=== PATIENT | female | born 1935 | race Caucasian/White ===

== ENCOUNTER → 2017-12-25 05:43 | Day surgery (SDC) | payer MEDICARE ==
[~2017-12-25 05:43] MED LIST: Buffered Lidocaine 0.9% SYRIN* 5 ML/SYR SYRINGE INTRADERM ONE; Bupivacaine 0.5% SDV PF* 30ML VIAL ONE; Dexamethasone TAB* 4 MG ONE; Dexamethasone TAB* 4 MG PO ONE; DiMENhydriNATE IV* 50 MG/ML VIAL IV PUSH PRN; Famotidine IV* 10 MG/ML 2 ML (20 mg) IV ONE; Famotidine IV* 10 MG/ML 2 ML (20 mg) ONE; KETAMINE HCL* 50 MG/ML 10 ML VIAL ONE; Lidocaine 2% PF * 5 ML VIAL ONE; Midazolam* 1 MG/ML 5 ML VIAL (5 MG) ONE; Morphine INJ* 2 MG/ML 1 ML SYRINGE (TWO MG - NEW SYRINGE VERSION) IV PRN; Morphine VIAL* 10 MG/ML 1 ML VIAL ONE; Naloxone* 0.4 MG/ML 1 ML VIAL IV PRN; Ondansetron ODT TAB* 4 MG ONE; Ondansetron TAB* 4 MG PO ONE; PROCHLORPERAZINE INJ 5 MG/ML 2 ML VIAL IV PRN; Phenylephrine INJ* 10 MG/ML 1 ML VIAL (10 MG) ONE; Propofol* 10 MG/ML 20 ML BTL IV PUSH ONE; Succinylcholine* 20 MG/ML 10 ML VIAL ONE; ceFAZolin 2 GM in NS PREMIX(*) 2 GM/100 ML BAG IVPB ONE; fentaNYL* 50 MCG/ML 2 ML VIAL (100 MCG VIAL) IV PRN; fentaNYL* 50 MCG/ML 2 ML VIAL (100 MCG VIAL) ONE; oxyCODONE/Acetamin 5/325 MG* TAB PO PRN
--- NOTE | 2017-12-26 05:14 | OP ---
DATE OF OPERATION: 12/25/17 - [facility] DATE OF : 35 SURGEON: Emerson Maxwell MD CRUDE OIL TREATER: ATA Gonzalez. A physician phlebotomy lab assistant was required for the length of the procedure for assistance with positioning, retraction, instrumentation, and closure. ANESTHESIOLOGIST: Denis Guzmán MD ANESTHESIA: General anesthesia with LMA, regional anesthesia with axillary nerve block. PRE-OP DIAGNOSIS: Right distal radius fracture, displaced, extraarticular. POST-OP DIAGNOSIS: Right distal radius fracture, displaced, intraarticular, 3 or more fragments. OPERATIVE PROCEDURE: Open reduction internal fixation right distal radius fracture, displaced, intraarticular, 3 or more fragments. ANTIBIOTICS: Ancef 2 g IV. IV FLUIDS: 1100 cc crystalloid. TOURNIQUET TIME: 86 minutes at 250 mmHg. [id number] TIME: 84 minutes. RADIATION EXPOSURE: Mini C-arm fluoroscopy, 83 seconds for an exposure of 25.53 mGy. COMPLICATIONS: None. SPECIMEN: None. IMPLANT: Synthes volar polyaxial distal locking plate, 3-hole, narrow. ESTIMATED BLOOD LOSS: Minimal. INDICATIONS FOR PROCEDURE: The patient is an 82-year-old woman, right hand dominant, who lives alone, who injured herself on 12/11/17 and saw me in the clinic on 12/16/17 where I diagnosed her with right distal radius fracture, displaced, extraarticular. The patient had dorsal tilt of somewhere between 16 to 20 degrees as a result of the fracture. I discussed nonoperative and operative treatment of the fracture and discussed the pros and cons of each. The patient opted for surgical management. I placed her on a cast and scheduled her for surgery. The patient was seen and cleared by her primary care physician. DESCRIPTION OF PROCEDURE: The patient signed written a consent in preoperative holding. Operative extremity was marked in preoperative holding. The patient' s cast was bivalved. Axillary nerve block was performed by Dr. Guzmán. The patient was taken back to the operating room and kept on the stretcher. Sedated and LMA placed. Hand table applied. Tourniquet applied to the right upper arm. Right upper extremity was prepped and draped. Surgical time-out performed. Esmarch applied and tourniquet elevated to 250 mmHg. A 7-cm incision about the volar wrist, longitudinal, overlying the FCR tendon was made. I changed knives and dissected with knife and then scissor dissection to the FCR sheath. I incised the sheath above the FCR. I then retracted the FCR ulnarly. I then incised the subsheath of the FCR. I then retracted the FPL tendon and muscle ulnarly. This exposed the pronator quadratus. I released this off the radial most edge of the distal radius. I released it with both 15-blade and then Bovie electrocautery. I exposed the fracture site. I debrided the fracture site somehow with curette , mini rongeur, and [place]. The fracture was displaced and slightly impacted. I performed reduction maneuvers with a combination of wrist flexion and longitudinal traction. I placed two 0.062 inch K-wires to hold the reduction. I found this reduction to not be perfect, so I did change it later. I sized the distal radius to fit a narrow plate. I placed the plate in place with three 0.045 inch K-wires. I liked the fit of the plate. I moved the plate slightly distal after having placed a 2.4 mm nonlocking screw in the oval hole proximally. After distalizing the plate slightly, I tightened it. I placed a second nonlocking 2.4 mm screw proximally. This controlled for rotation. I next removed the provisional K-wires that I placed earlier and re-reduced the fracture. I next placed a 0.045 K-wire through the plate distally. I took multiple mini C-arm images to confirm the excellent reduction. I next placed two locking 2.4 mm screws distally through the plate. I liked the length of my screws and the position of the plate and the reduction of my fracture. I removed the remaining pins that had been placed through the plate. I next proceeded to fill the plate distally with 2.4 mm locking screws. Proximally, in my proximal 3 holes, I placed two locking 2.4 mm screws. The oval holed screw, I exchanged a 2.4 mm nonlocker for a 2.7 mm nonlocking screw as is my custom. Final x-rays with mini C-arm showed excellent islam of volar tilt and radial inclination. Excellent fracture reduction. Good length of hardware and positioning of hardware. It should be stated that preoperatively this appeared to be in extraarticular fracture, transverse. However, intraoperatively, I discovered that there was clearly a longitudinal fracture-like component that made for a separate radial styloid fragment. During my reduction maneuvers, I certainly compressed the distal radius fragment and its two components, from medial to lateral to try to optimally reduce those fragments as well as those two fragments to the most proximal segment. Irrigation. I placed approximately four stitches, [id number], between the pronator quadratus and the FCR subsheath. Irrigation. Closure of the subcutaneous tissue layer with buried simple stitches using Vicryl 3-0 suture. Closure of the skin with running stitch using nylon 3-0 suture. Xeroform, 4x4s , sterile Webril, a volar and dorsal wrist splint was applied using plaster and wrapped with an Edmundo bandage. The tourniquet was then dropped. The patient was then placed in a simple sling. DISPOSITION: The patient was discharged home when medically stable. She was sent home with Percocet for pain control and Bactrim x3 days postoperatively for infection prophylaxis. The patient will follow up in clinic in approximately 10 days postoperative for wound check. The patient will remain in the splint until that clinic visit. [id number]/CPS #: [id number] CATHLEEN
--- NOTE | 2017-12-26 07:36 | RAD ---
INDICATION: Right distal radius upper reduction internal fixation, unspecified fracture of upper end of right radius COMPARISONS: None TECHNIQUE: Fluoroscopy was provided for a surgical procedure. Total fluoroscopy time is: 1 minute, 23 seconds FINDINGS: Spot images demonstrate internal fixation of the distal radius. IMPRESSION: FLUOROSCOPY WAS PROVIDED FOR A SURGICAL PROCEDURE CPT II Codes: G9500
== END | disposition home or self-care (01) ==
LOC: OR 05:43
PROVIDERS: ATTEND Orthopaedic Surgery
DX: S52.101A Unspecified fracture of upper end of right radius, initial encounter for closed fracture (principal); W19.XXXA Unspecified fall, initial encounter; I10 Essential (primary) hypertension; Z79.82 Long term (current) use of aspirin; Z79.899 Other long term (current) drug therapy; Z87.891 Personal history of nicotine dependence
CPT/HCPCS: 76001; A9270-GY; C1713; C1771; C1776; J0330; J0690; J2250; J2270; J2704; J3010; J8540

== ENCOUNTER 2024-02-12 05:35 | Observation (INO) ==
[~2024-02-12 05:35] MED LIST changes: -Buffered Lidocaine 0.9% SYRIN* 5 ML/SYR SYRINGE INTRADERM ONE; -Bupivacaine 0.5% SDV PF* 30ML VIAL ONE; -Dexamethasone TAB* 4 MG ONE; -Dexamethasone TAB* 4 MG PO ONE; -DiMENhydriNATE IV* 50 MG/ML VIAL IV PUSH PRN; -Famotidine IV* 10 MG/ML 2 ML (20 mg) IV ONE; -Famotidine IV* 10 MG/ML 2 ML (20 mg) ONE; -KETAMINE HCL* 50 MG/ML 10 ML VIAL ONE; +Lidocaine 1% w EPI 1:100,000 MDV 20 ML VIAL ONE; -Lidocaine 2% PF * 5 ML VIAL ONE; -Midazolam* 1 MG/ML 5 ML VIAL (5 MG) ONE; -Morphine INJ* 2 MG/ML 1 ML SYRINGE (TWO MG - NEW SYRINGE VERSION) IV PRN; -Morphine VIAL* 10 MG/ML 1 ML VIAL ONE; +Naloxone 0.4 mg VIAL 0.4 mg/ml 1 ml VIAL IV PRN; -Naloxone* 0.4 MG/ML 1 ML VIAL IV PRN; +Ondansetron 4 mg VIAL 2 MG/ML 2 ml VIAL IV PRN; -Ondansetron ODT TAB* 4 MG ONE; -Ondansetron TAB* 4 MG PO ONE; -PROCHLORPERAZINE INJ 5 MG/ML 2 ML VIAL IV PRN; -Phenylephrine INJ* 10 MG/ML 1 ML VIAL (10 MG) ONE; -Propofol* 10 MG/ML 20 ML BTL IV PUSH ONE; -Succinylcholine* 20 MG/ML 10 ML VIAL ONE; +Vancomycin 1,000 MG VIAL ONE; -ceFAZolin 2 GM in NS PREMIX(*) 2 GM/100 ML BAG IVPB ONE; +fentaNYL 100 mcg/2 ml 50 MCG/ML VIAL IV PRN; -fentaNYL* 50 MCG/ML 2 ML VIAL (100 MCG VIAL) IV PRN; -fentaNYL* 50 MCG/ML 2 ML VIAL (100 MCG VIAL) ONE; -oxyCODONE/Acetamin 5/325 MG* TAB PO PRN
[2024-02-12] MEDS ORDERED: Clindamycin 900 MG/50 **NS BAG 900 MG/50 ML BAG ONE (06:10)
[2024-02-12] MEDS ORDERED: Famotidine IV 10 MG/ML 2 ml VIAL (20 mg) ONE (06:10)
[2024-02-12] MEDS ORDERED: Tranexamic Acid 1 GM/100ML BAG 2,000 MG/200 ML BAG IV ONE (06:10)
[2024-02-12] MEDS: Buffered Lidocaine 1% SYRIN 1 ml INTRADERM ONE (06:30)
[2024-02-12] MEDS: Famotidine IV 10 MG/ML 2 ml VIAL (20 mg) IV ONE (06:30)
[2024-02-12] MEDS: Lactated Ringers 1000 ml BAG 1,000 ML IV SCH ×2 (06:31→15:18)
[2024-02-12] MEDS ORDERED: Phenylephrine IV 10 MG/ML 1 ml VIAL ONE (06:52)
[2024-02-12] MEDS ORDERED: Propofol 10 MG/ML 20 ML BTL ONE (06:57)
[2024-02-12] MEDS ORDERED: Midazolam 2 mg/2 ml VIAL 1 mg/ml 2 ml VIAL (2 mg) ONE (06:58)
[2024-02-12] MEDS ORDERED: fentaNYL 250 mcg/5 ml 50 MCG/ML 5 ml VIAL (250 MCG) ONE (06:58)
[2024-02-12] MEDS ORDERED: Rocuronium 50 mg VIAL 10 mg/ml 5 ml VIAL (50 mg) ONE ×3 (06:58→10:39)
[2024-02-12] MEDS ORDERED: Dexamethasone IV 4 MG/ML VIAL 1 ml VIAL ONE ×2 (06:58→09:08)
[2024-02-12] MEDS ORDERED: Lidocaine 2% PF 5 ML VIAL ONE (06:58)
[2024-02-12] MEDS ORDERED: ROPIVACAINE 5 MG/ML 30 ML BTL (0.5%) ONE (07:06)
[2024-02-12 07:23] LABS: Rapid COVID-19 Molecular Undetected (Undetected)
[2024-02-12] MEDS ORDERED: Glycopyrrolate IV 0.2 MG/ML 1 ML VIAL ONE ×2 (08:09→08:50)
[2024-02-12] MEDS ORDERED: Ondansetron 4 mg VIAL 2 MG/ML 2 ml VIAL ONE (09:08)
[2024-02-12] MEDS ORDERED: Albumin Human 5% 12.5 GM/250 ML BTL IV ONE (09:31)
[2024-02-12] MEDS ORDERED: Acetaminophen IV 1 GM/100ML 1,000 MG/100 ML BAG IV ONE (09:53)
[2024-02-12] MEDS ORDERED: Magnesium Hydroxide LIQ 30 ML UDC PO PRN (11:31)
[2024-02-12] MEDS ORDERED: Lactulose 30 ml UDC PO PRN (11:31)
[2024-02-12] MEDS ORDERED: Morphine 2 MG/ML SYRINGE IV PRN (11:31)
[2024-02-12] MEDS ORDERED: Ondansetron 4 mg VIAL 2 MG/ML 2 ml VIAL IV PRN (11:31)
[2024-02-12] MEDS: Clindamycin 600 MG/D5W BAG 600 MG/50 ML BAG IV SCH (15:16)
[2024-02-12 17:17] LABS: HDL Cholesterol 42.7 mg/dL
[2024-02-12] MEDS: Magnesium Hydroxide LIQ 30 ML UDC PO SCH (22:17)
[2024-02-13 06:02] LABS: Hematocrit 36.2 % (35-45); Hemoglobin 12.1 g/dL (11.5-14.3); Platelet Count 280 10^3/uL (150-450)
[2024-02-13 06:18] LABS: Calcium 9.2 mg/dL (8.6-10.3); Creatinine, Serum 0.53 mg/dL (0.51-0.95); Potassium 4.2 mmol/L (3.5-5.0); eGFR CKD-EPI 88.9 (>60)
[2024-02-13] MEDS: Vitamin THERAPEUTIC TAB PO SCH (08:35)
[2024-02-13 09:53] VITALS: BP 123/53
[2024-02-13] MEDS: Ondansetron ODT 4 mg TAB 4 MG TAB PO PRN (10:38)
== END 2024-02-13 12:10 | disposition home or self-care (01) ==
LOC: OR 05:35 → SSU 05:35
PROVIDERS: ADMIT Orthopaedic Surgery; ATTEND Orthopaedic Surgery

== ENCOUNTER 2024-02-24 21:32 | Inpatient (IN) ==
[2024-02-24] MEDS: Amiodarone 150 mg IVPREMIX 150 MG/100 ML BAG IV ONE (22:07)
[2024-02-24] MEDS: PHENYLEPHRINE DRIP IVPREMIX 50 MG/250 ML BAG IV SCH (22:21)
[2024-02-24] MEDS: Acetaminophen IV 1 GM/100ML 1,000 MG/100 ML BAG IV ONE (22:25)
[2024-02-24] MEDS: Amiodarone 360 MG IVPREMIX 360 MG/200 ML BAG IV ONE (22:42)
[2024-02-24 22:45] LABS: Venous Bicarbonate HCO3 22.7 mmol/L (24-28)
[2024-02-24 22:49] LABS: Mean Corpuscular Hemoglobin 29.9 pg (27-33); Mean Corpuscular Hgb Conc 34.3 g/dL (31-36); Mean Corpuscular Volume 87.2 fL (80-97); Mean Platelet Volume 7.2 fL (7.5-11.2); Platelet Count 459 10^3/uL (150-450); Red Blood Count 4.01 10^6/uL (3.63-4.92); Red Cell Distribution Width 13.8 % (12-17)
[2024-02-24 23:06] LABS: INR 1.45 (0.85-1.14)
[2024-02-24 23:11] LABS: Albumin 2.3 g/dL (3.2-5.2); Albumin/Globulin Ratio 1.1 (1-3); C Reactive Protein 282.61 mg/L (<8.01); Calcium 7.7 mg/dL (8.6-10.3); Creatinine, Serum 1.05 mg/dL (0.51-0.95); Globulin 2.1 g/dL (2-4); Potassium 3.5 mmol/L (3.5-5.0); Total Bilirubin 0.6 mg/dL (0.2-1.0); Total Protein 4.4 g/dL (6.4-8.9); eGFR CKD-EPI 51.1 (>60)
[2024-02-24] MEDS: Lactated Ringers 1000 ml BAG 1,000 ML IV SCH (23:14)
[2024-02-24 23:24] LABS: TSH Ultra Thyroid Stim Horm 1.67 mcIU/mL (0.34-5.60)
[2024-02-25 00:15] LABS: High Sensitivity Troponin 1 Hr 97 pg/mL (<15)
[2024-02-25 00:21] LABS: ABS Monocytes 1.5 10^3/uL (0.0-0.9); ABS Neutrophils 15.4 10^3/uL (1.5-7.6); ABS Nucleated RBC 0.01 10^3/ul; Eosinophil % 0.2 %; Lymphocyte % 5.6 %; Nucleated Red Blood Cells % 0.1 %/100WBC (0.0-0.8); RBC Morphology Normal (Normal); Toxic Granulation 1+
[2024-02-25] MEDS ORDERED: Succinylcholine 200 mg VIAL 20 mg/ml 10 ml VIAL (200 mg) ONE (00:27)
[2024-02-25] MEDS ORDERED: Rocuronium 50 mg VIAL 10 mg/ml 5 ml VIAL (50 mg) ONE ×3 (00:27→19:00)
[2024-02-25] MEDS: Ketamine HCL 50 mg/ml 10 ml VIAL (500 MG) IV ONE (00:32)
[2024-02-25] MEDS: Enoxaparin 80 MG/0.8 ML SYR SUBCUT ONE (04:35)
[2024-02-25] MEDS: Nystatin TOP POWDER 15 GM BTL TOPICAL SCH (04:36)
[2024-02-25] MEDS: Amiodarone 360 MG IVPREMIX 360 MG/200 ML BAG IV SCH (04:55)
[2024-02-25 05:50] LABS: Hematocrit 41.4 % (35-45); Mean Corpuscular Hemoglobin 29.6 pg (27-33); Mean Corpuscular Hgb Conc 33.9 g/dL (31-36); Mean Corpuscular Volume 87.4 fL (80-97); Mean Platelet Volume 7.3 fL (7.5-11.2); Platelet Count 532 10^3/uL (150-450); Red Blood Count 4.74 10^6/uL (3.63-4.92); Red Cell Distribution Width 13.7 % (12-17); White Blood Count 18.6 10^3/uL (3.8-11.8)
[2024-02-25] MEDS: Acetaminophen IV 1 GM/100ML 1,000 MG/100 ML BAG IV SCH (06:17)
[2024-02-25 06:38] LABS: Albumin 2.5 g/dL (3.2-5.2); Albumin/Globulin Ratio 1.1 (1-3); Calcium 8.1 mg/dL (8.6-10.3); Creatinine, Serum 1.22 mg/dL (0.51-0.95); Globulin 2.2 g/dL (2-4); Magnesium 2.1 mg/dL (1.9-2.7); Potassium 4.1 mmol/L (3.5-5.0); Total Bilirubin 0.5 mg/dL (0.2-1.0); Total Protein 4.7 g/dL (6.4-8.9); eGFR CKD-EPI 42.7 (>60)
[2024-02-25] MEDS: Sulfur Hexaflouride MICROSPHR 25 MG VIAL IV PRN (09:07)
[2024-02-25] MEDS: Enoxaparin 80 MG/0.8 ML SYR SUBCUT SCH (09:36)
[2024-02-25] MEDS: KCL 20 MEQ/100 ML IVPREMIX 20 MEQ/100 ML BAG IV SCH (09:36)
[2024-02-25] MEDS: Enoxaparin 100 MG/ML SYR SUBCUT SCH (09:51)
[2024-02-25] MEDS ORDERED: Enoxaparin 80 MG/0.8 ML SYR SUBCUT SCH (10:00)
[2024-02-25] MEDS: Morphine 2 MG/ML SYRINGE IV PRN (10:25)
[2024-02-25 12:07] LABS: Urine Appearance Turbid; Urine Bacteria Absent /HPF (Absent); Urine Bilirubin Negative (Negative); Urine Blood Trace (Negative); Urine Color Yellow; Urine Glucose Negative (Negative); Urine Ketones Negative (Negative); Urine Nitrite Negative (Negative); Urine Protein 1+ (>=30 mg/dL) (Negative); Urine Red Blood Cell 3+(>10/hpf) /HPF (0-Trace); Urine Specific Gravity >1.050 (1.002-1.030); Urine Squamous Epithelial Cell Present /HPF (Absent); Urine Urobilinogen Negative (Negative); Urine White Blood Cell 3+(>20/hpf) /HPF (0-Trace)
[2024-02-25] MEDS: metroNIDAZOLE IV 500 MG/100ML 500 MG/100 ML BAG IVPB SCH ×2 (14:16→23:22)
[2024-02-25] MEDS ORDERED: Phenylephrine IV 10 MG/ML 1 ml VIAL ONE ×2 (14:42→19:18)
[2024-02-25] MEDS ORDERED: Lidocaine 2% PF 5 ML VIAL ONE ×2 (14:43→16:43)
[2024-02-25] MEDS ORDERED: Ondansetron 4 mg VIAL 2 MG/ML 2 ml VIAL ONE (14:43)
[2024-02-25] MEDS ORDERED: Propofol 10 MG/ML 20 ML BTL ONE (14:43)
[2024-02-25] MEDS ORDERED: Dexamethasone IV 4 MG/ML VIAL 1 ml VIAL ONE (14:43)
[2024-02-25] MEDS ORDERED: fentaNYL 100 mcg/2 ml 50 MCG/ML VIAL ONE (14:43)
[2024-02-25] MEDS ORDERED: Albumin Human 5% 12.5 GM/250 ML BTL IV ONE ×2 (14:46→19:53)
[2024-02-25] MEDS ORDERED: Calcium CHLORIDE 10% SYRINGE 1 GM/10 ML ONE (14:56)
[2024-02-25] MEDS ORDERED: Midazolam 2 mg/2 ml VIAL 1 mg/ml 2 ml VIAL (2 mg) ONE (16:52)
[2024-02-25] MEDS ORDERED: Propofol 10 mg/ml 100 ML BTL 1,000 MG/100 ML BTL ONE (19:53)
[2024-02-25] MEDS ORDERED: HYDROmorphone 0.5 MG/0.5 ML SYRINGE ONE ×2 (20:37→20:54)
[2024-02-25] MEDS: Propofol 10 mg/ml 100 ML BTL 1,000 MG/100 ML BTL IV SCH (22:05)
[2024-02-25] MEDS: Lactated Ringers 1000 ml BAG 1,000 ML IV SCH (22:27)
[2024-02-25] MEDS: Rocuronium 50 mg VIAL 10 mg/ml 5 ml VIAL (50 mg) ONE (23:35)
[2024-02-26] MEDS: Amiodarone 400 mg TAB PO SCH (00:19)
[2024-02-26] MEDS: Norepinephrine 4 MG/250mL D5W 4,000 MCG/250 ML BAG IV SCH (02:00)
[2024-02-26 02:29] LABS: Creatinine, Serum 2.04 mg/dL (0.51-0.95); Potassium 4.6 mmol/L (3.5-5.0)
[2024-02-26] MEDS: Chlorhexidine MOUTHWASH 0.12% 15 ML UDC TOPICAL SCH (02:47)
[2024-02-26] MEDS: VASOPRESSIN IVPREMIX BTL 40 UNIT/100 ML BTL IV ONE (03:34)
[2024-02-26] MEDS: VASOPRESSIN IVPREMIX BTL 40 UNIT/100 ML BTL IV SCH (03:35)
[2024-02-26] MEDS ORDERED: Morphine 2 MG/ML SYRINGE IV PRN (03:49)
[2024-02-26] MEDS ORDERED: Morphine 2 MG/ML SYRINGE IV SCH (04:00)
[2024-02-26] MEDS: Lactated Ringers 1000 ml BAG 500 ML IV ONE (04:26)
[2024-02-26 05:06] LABS: Hematocrit 32.7 % (35-45); Mean Corpuscular Hemoglobin 29.8 pg (27-33); Mean Corpuscular Hgb Conc 33.5 g/dL (31-36); Mean Platelet Volume 7.7 fL (7.5-11.2); Platelet Count 540 10^3/uL (150-450); Red Blood Count 3.67 10^6/uL (3.63-4.92); Red Cell Distribution Width 14.4 % (12-17); White Blood Count 27.9 10^3/uL (3.8-11.8)
[2024-02-26 05:42] LABS: Calcium 7.9 mg/dL (8.6-10.3); Creatinine, Serum 2.07 mg/dL (0.51-0.95); Magnesium 1.9 mg/dL (1.9-2.7); Phosphorus 6.6 mg/dL (2.5-5.0); Potassium 4.7 mmol/L (3.5-5.0); eGFR CKD-EPI 22.6 (>60)
[2024-02-26 07:38] LABS: ABS Basophils 0.1 10^3/uL (0.0-0.1); ABS Eosinophils 0.1 10^3/uL (0.0-0.5); ABS Lymphocytes 1.4 10^3/uL (1.0-4.8); ABS Monocytes 0.5 10^3/uL (0.0-0.9); ABS Neutrophils 25.8 10^3/uL (1.5-7.6); ABS Nucleated RBC 0.02 10^3/ul; Eosinophil % 0.5 %; Lymphocyte % 4.9 %; Nucleated Red Blood Cells % 0.1 %/100WBC (0.0-0.8); RBC Morphology Normal (Normal)
[2024-02-26] MEDS: Amiodarone 360 MG IVPREMIX 360 MG/200 ML BAG IV SCH (09:05)
[2024-02-26 09:41] LABS: Albumin 2.5 g/dL (3.2-5.2); Albumin/Globulin Ratio 1.8 (1-3); Direct Bilirubin 0.1 mg/dL (0.03-0.18); Globulin 1.4 g/dL (2-4); Indirect Bilirubin 0.3 mg/dL (0.3-1.0); Total Bilirubin 0.4 mg/dL (0.2-1.0); Total Protein 3.9 g/dL (6.4-8.9)
[2024-02-26] MEDS: fentaNYL 100 mcg/2 ml 50 MCG/ML VIAL IV SLOW PU PRN (09:55)
[2024-02-26] MEDS: fentaNYL INFUSION 50 mcg/mL VL 2,500 MCG/50 ML VIAL IV SCH (10:06)
[2024-02-26] MEDS: fentaNYL 100 mcg/2 ml 50 MCG/ML VIAL ONE (10:15)
[2024-02-26 12:05] LABS: Hematocrit 34.6 % (35-45); Hemoglobin 11.5 g/dL (11.5-14.3)
[2024-02-26 12:37] LABS: Calcium 7.8 mg/dL (8.6-10.3); Creatinine, Serum 2.09 mg/dL (0.51-0.95); Potassium 4.8 mmol/L (3.5-5.0); eGFR CKD-EPI 22.4 (>60)
[2024-02-26] MEDS: Digoxin IV 0.5 MG/2 ML AMP (0.25 MG/ML) IV SLOW PU ONE (19:32)
[2024-02-26] MEDS: Famotidine IV 10 MG/ML 2 ml VIAL (20 mg) IV SLOW PU SCH (20:07)
[2024-02-27 04:47] LABS: Hematocrit 31.4 % (35-45); Hemoglobin 10.6 g/dL (11.5-14.3); Mean Corpuscular Hemoglobin 30.1 pg (27-33); Mean Corpuscular Hgb Conc 33.9 g/dL (31-36); Mean Corpuscular Volume 88.7 fL (80-97); Mean Platelet Volume 7.7 fL (7.5-11.2); Platelet Count 498 10^3/uL (150-450); Red Blood Count 3.54 10^6/uL (3.63-4.92); Red Cell Distribution Width 14.5 % (12-17); White Blood Count 36.8 10^3/uL (3.8-11.8)
[2024-02-27 05:05] LABS: Calcium 7.2 mg/dL (8.6-10.3); Creatinine, Serum 2.56 mg/dL (0.51-0.95); Phosphorus 5.6 mg/dL (2.5-5.0); Potassium 4.3 mmol/L (3.5-5.0); eGFR CKD-EPI 17.5 (>60)
[2024-02-27 08:29] LABS: ABS Basophils 0.1 10^3/uL (0.0-0.1); ABS Eosinophils 0.1 10^3/uL (0.0-0.5); ABS Lymphocytes 1.8 10^3/uL (1.0-4.8); ABS Monocytes 1.1 10^3/uL (0.0-0.9); ABS Neutrophils 33.8 10^3/uL (1.5-7.6); ABS Nucleated RBC 0.14 10^3/ul; Eosinophil % 0.3 %; Lymphocyte % 4.9 %; Nucleated Red Blood Cells % 0.4 %/100WBC (0.0-0.8); RBC Morphology Normal (Normal); Toxic Granulation 2+
[2024-02-27] MEDS: Norepinephrine 4 MG/250mL D5W 4,000 MCG/250 ML BAG IV SCH (12:16)
[2024-02-27 13:03] LABS: Hematocrit 30.9 % (35-45); Hemoglobin 10.4 g/dL (11.5-14.3); Mean Corpuscular Hemoglobin 29.7 pg (27-33); Mean Corpuscular Hgb Conc 33.6 g/dL (31-36); Mean Corpuscular Volume 88.4 fL (80-97); Mean Platelet Volume 7.5 fL (7.5-11.2); Platelet Count 439 10^3/uL (150-450); Red Blood Count 3.49 10^6/uL (3.63-4.92); Red Cell Distribution Width 14.6 % (12-17); White Blood Count 43.6 10^3/uL (3.8-11.8)
[2024-02-27 13:18] LABS: Creatinine, Serum 2.47 mg/dL (0.51-0.95); eGFR CKD-EPI 18.3 (>60)
[2024-02-27 13:50] LABS: ABS Basophils 0.1 10^3/uL (0.0-0.1); ABS Eosinophils 0.2 10^3/uL (0.0-0.5); ABS Lymphocytes 1.6 10^3/uL (1.0-4.8); ABS Monocytes 0.7 10^3/uL (0.0-0.9); ABS Nucleated RBC 0.19 10^3/ul; Eosinophil % 0.4 %; Lymphocyte % 3.6 %; Nucleated Red Blood Cells % 0.4 %/100WBC (0.0-0.8); RBC Morphology Normal (Normal)
[2024-02-27] MEDS: methylPREDNISolone SOD SUCC 125 mg 2 ML VIAL ONE (14:59)
[2024-02-27 15:18] LABS: Calcium 7.1 mg/dL (8.6-10.3)
[2024-02-27 17:50] LABS: Activated Partial Thrombo Time 41.6 seconds (26.0-38.0); INR 1.21 (0.85-1.14)
[2024-02-27] MEDS: Heparin DRIP 25,000 UNITS BAG 25,000 UNITS/250 ML BAG IV SCH (18:01)
[2024-02-27] MEDS: Heparin 5000 UNITS/ML 1 mL VIAL IV SCH (18:03)
[2024-02-27] MEDS ORDERED: Heparin 5000 UNITS/ML 1 mL VIAL SUBCUT SCH (21:00)
[2024-02-27] MEDS ORDERED: Amiodarone 400 mg TAB PO SCH (21:00)
[2024-02-28 04:40] LABS: Hematocrit 30.6 % (35-45); Hemoglobin 10.1 g/dL (11.5-14.3); Mean Corpuscular Hemoglobin 29.1 pg (27-33); Mean Corpuscular Hgb Conc 33.2 g/dL (31-36); Mean Corpuscular Volume 87.7 fL (80-97); Mean Platelet Volume 7.4 fL (7.5-11.2); Platelet Count 450 10^3/uL (150-450); Red Blood Count 3.49 10^6/uL (3.63-4.92); Red Cell Distribution Width 14.8 % (12-17); White Blood Count 35.7 10^3/uL (3.8-11.8)
[2024-02-28 04:51] LABS: INR 1.19 (0.85-1.14)
[2024-02-28 05:35] LABS: ABS Basophils 0.1 10^3/uL (0.0-0.1); ABS Eosinophils 0.2 10^3/uL (0.0-0.5); ABS Lymphocytes 1.2 10^3/uL (1.0-4.8); ABS Monocytes 0.7 10^3/uL (0.0-0.9); ABS Neutrophils 33.5 10^3/uL (1.5-7.6); ABS Nucleated RBC 0.14 10^3/ul; Eosinophil % 0.7 %; Lymphocyte % 3.4 %; Nucleated Red Blood Cells % 0.4 %/100WBC (0.0-0.8)
[2024-02-28 06:03] LABS: Creatinine, Serum 2.13 mg/dL (0.51-0.95); Magnesium 1.9 mg/dL (1.9-2.7); Phosphorus 5.8 mg/dL (2.5-5.0); eGFR CKD-EPI 21.9 (>60)
[2024-02-28 07:43] LABS: Osmolality Serum 278 mOsm/kg (275-295)
[2024-02-28] MEDS: Magnesium Sulfate IV 1GM/100ML 1 GM/100 ML BAG IV ONE (08:21)
[2024-02-28] MEDS: Amiodarone 400 mg TAB PO SCH (08:49)
[2024-02-28] MEDS: NS 0.9% 500 ml BAG 500 ML IV ONE (18:35)
[2024-02-28 23:59] LABS: Creatinine, Serum 1.41 mg/dL (0.51-0.95); eGFR CKD-EPI 35.9 (>60)
[2024-02-29 04:15] LABS: Hematocrit 31.3 % (35-45); Hemoglobin 10.4 g/dL (11.5-14.3); Mean Corpuscular Hemoglobin 29.1 pg (27-33); Mean Corpuscular Hgb Conc 33.3 g/dL (31-36); Mean Corpuscular Volume 87.3 fL (80-97); Mean Platelet Volume 7.5 fL (7.5-11.2); Platelet Count 467 10^3/uL (150-450); Red Blood Count 3.58 10^6/uL (3.63-4.92); Red Cell Distribution Width 14.3 % (12-17); White Blood Count 22.7 10^3/uL (3.8-11.8)
[2024-02-29 04:23] LABS: Activated Partial Thrombo Time 53.8 seconds (26.0-38.0); INR 1.15 (0.85-1.14)
[2024-02-29 05:09] LABS: Calcium 7.2 mg/dL (8.6-10.3); Creatinine, Serum 1.23 mg/dL (0.51-0.95); Magnesium 2.3 mg/dL (1.9-2.7); Potassium 4.1 mmol/L (3.5-5.0); eGFR CKD-EPI 42.3 (>60)
[2024-02-29 07:51] LABS: ABS Eosinophils 0.2 10^3/uL (0.0-0.5); ABS Lymphocytes 1.1 10^3/uL (1.0-4.8); ABS Monocytes 0.7 10^3/uL (0.0-0.9); ABS Neutrophils 20.7 10^3/uL (1.5-7.6); ABS Nucleated RBC 0.11 10^3/ul; Eosinophil % 0.8 %; Nucleated Red Blood Cells % 0.5 %/100WBC (0.0-0.8); RBC Morphology Normal (Normal)
[2024-02-29] MEDS: Digoxin IV 0.5 MG/2 ML AMP (0.25 MG/ML) IV SLOW PU ONE ×2 (08:29→14:08)
[2024-02-29] MEDS: NS 0.9% 1000 ml BAG 1,000 ML IV SCH (10:26)
[2024-02-29] MEDS: Furosemide 40 mg/4 ml IV VIAL IV ONE (13:09)
[2024-02-29] MEDS ORDERED: Albuterol/Ipratropium NEB.SOL (2.5/0.5 MG) 3 ML NEB.SOLN INH PRN (13:15)
[2024-02-29] MEDS: Albuterol/Ipratropium NEB.SOL (2.5/0.5 MG) 3 ML NEB.SOLN INH SCH (13:16)
[2024-02-29] MEDS: Furosemide 40 mg/4 ml IV VIAL ONE (14:20)
[2024-02-29] MEDS: fentaNYL 100 mcg/2 ml 50 MCG/ML VIAL IV SLOW PU PRN (16:30)
[2024-03-01 05:38] LABS: Activated Partial Thrombo Time 62.5 seconds (26.0-38.0); INR 1.19 (0.85-1.14)
[2024-03-01 05:50] LABS: Calcium 7.4 mg/dL (8.6-10.3); Creatinine, Serum 0.71 mg/dL (0.51-0.95); Magnesium 2.1 mg/dL (1.9-2.7); Phosphorus 3.7 mg/dL (2.5-5.0); Potassium 4.1 mmol/L (3.5-5.0); eGFR CKD-EPI 81.7 (>60)
[2024-03-01 06:18] LABS: Hematocrit 28.5 % (35-45); Hemoglobin 9.8 g/dL (11.5-14.3); Mean Corpuscular Hemoglobin 30.2 pg (27-33); Mean Corpuscular Hgb Conc 34.5 g/dL (31-36); Mean Corpuscular Volume 87.6 fL (80-97); Mean Platelet Volume 7.9 fL (7.5-11.2); Platelet Count 456 10^3/uL (150-450); Red Blood Count 3.25 10^6/uL (3.63-4.92); Red Cell Distribution Width 14.5 % (12-17); White Blood Count 24.3 10^3/uL (3.8-11.8)
[2024-03-01 08:04] LABS: ABS Basophils 0.1 10^3/uL (0.0-0.1); ABS Eosinophils 0.2 10^3/uL (0.0-0.5); ABS Lymphocytes 1.4 10^3/uL (1.0-4.8); ABS Monocytes 0.6 10^3/uL (0.0-0.9); ABS Neutrophils 21.4 10^3/uL (1.5-7.6); ABS Nucleated RBC 0.33 10^3/ul; Eosinophil % 0.7 %; Lymphocyte % 5.8 %; Nucleated Red Blood Cells % 1.4 %/100WBC (0.0-0.8); RBC Morphology Normal (Normal)
[2024-03-01] MEDS: Norepinephrine *QUAD STRENGTH* 16 mg/250 mL NS PREMIX (ICU ONLY) IV SCH (08:24)
[2024-03-01] MEDS: Furosemide 40 mg/4 ml IV VIAL IV ONE ×2 (09:00→14:28)
[2024-03-01] MEDS: Albumin Human 25% 25 GM/100 ML BTL IV ONE (09:17)
[2024-03-01] MEDS: Hydrocortisone INJ 100 MG/2ML 2 ML VIAL IV SCH (09:20)
[2024-03-01] MEDS: metroNIDAZOLE IV 500 MG/100ML 500 MG/100 ML BAG IVPB SCH (11:14)
[2024-03-01] MEDS: LORazepam 2 MG/ML 1 mL Syringe IV ONE (13:10)
[2024-03-01 21:30] LABS: Calcium 7.5 mg/dL (8.6-10.3); Creatinine, Serum 0.59 mg/dL (0.51-0.95); Magnesium 1.9 mg/dL (1.9-2.7); Phosphorus 3.7 mg/dL (2.5-5.0); Potassium 3.7 mmol/L (3.5-5.0); eGFR CKD-EPI 86.6 (>60)
[2024-03-02 04:58] LABS: Hematocrit 25.9 % (35-45); Hemoglobin 8.7 g/dL (11.5-14.3); Mean Corpuscular Hemoglobin 29.3 pg (27-33); Mean Corpuscular Hgb Conc 33.6 g/dL (31-36); Mean Corpuscular Volume 87.1 fL (80-97); Mean Platelet Volume 7.6 fL (7.5-11.2); Platelet Count 438 10^3/uL (150-450); Red Blood Count 2.97 10^6/uL (3.63-4.92); Red Cell Distribution Width 14.1 % (12-17); White Blood Count 20.2 10^3/uL (3.8-11.8)
[2024-03-02 05:18] LABS: Activated Partial Thrombo Time 57.5 seconds (26.0-38.0); INR 1.28 (0.85-1.14)
[2024-03-02] MEDS: Furosemide 40 mg/4 ml IV VIAL IV ONE (05:39)
[2024-03-02 05:42] LABS: Calcium 7.8 mg/dL (8.6-10.3); Creatinine, Serum 0.6 mg/dL (0.51-0.95); Phosphorus 3.4 mg/dL (2.5-5.0); eGFR CKD-EPI 86.3 (>60)
[2024-03-02 05:46] LABS: ABS Lymphocytes 0.8 10^3/uL (1.0-4.8); ABS Monocytes 0.6 10^3/uL (0.0-0.9); ABS Neutrophils 18.7 10^3/uL (1.5-7.6); ABS Nucleated RBC 0.36 10^3/ul; Eosinophil % 0.1 %; Lymphocyte % 3.9 %; Nucleated Red Blood Cells % 1.8 %/100WBC (0.0-0.8)
[2024-03-02 05:47] LABS: Anisocytosis 1+; Polychromasia 1+; Toxic Granulation 1+
[2024-03-02 08:44] LABS: C Reactive Protein 85.04 mg/L (<8.01)
[2024-03-02 09:46] LABS: PCO2 Arterial 38 mmHg (35-45); PO2 Arterial 72 mmHg (80-100)
[2024-03-02] MEDS: Pantoprazole VIAL 40 MG VIAL IV SCH (10:25)
[2024-03-02 15:32] LABS: PCO2 Arterial 37 mmHg (35-45); PO2 Arterial 93 mmHg (80-100)
[2024-03-02] MEDS: HYDROmorphone 0.5 MG/0.5 ML SYRINGE IV SLOW PU PRN (16:01)
[2024-03-02 20:02] LABS: Hematocrit 25.7 % (35-45); Hemoglobin 8.7 g/dL (11.5-14.3); Mean Corpuscular Hemoglobin 29.7 pg (27-33); Mean Corpuscular Hgb Conc 33.7 g/dL (31-36); Mean Corpuscular Volume 88.2 fL (80-97); Mean Platelet Volume 8.2 fL (7.5-11.2); Platelet Count 447 10^3/uL (150-450); Red Blood Count 2.92 10^6/uL (3.63-4.92); White Blood Count 22.8 10^3/uL (3.8-11.8)
[2024-03-02 20:38] LABS: ABS Lymphocytes 1.2 10^3/uL (1.0-4.8); ABS Monocytes 0.9 10^3/uL (0.0-0.9); ABS Neutrophils 20.6 10^3/uL (1.5-7.6); ABS Nucleated RBC 0.38 10^3/ul; Lymphocyte % 5.4 %; Nucleated Red Blood Cells % 1.7 %/100WBC (0.0-0.8)
[2024-03-02] MEDS: Amiodarone 150 mg IVPREMIX 150 MG/100 ML BAG IV ONE (20:48)
[2024-03-02] MEDS: Norepinephrine 4 MG/250mL D5W 4,000 MCG/250 ML BAG IV SCH (21:05)
[2024-03-03 04:12] LABS: Hematocrit 24.1 % (35-45); Hemoglobin 8.3 g/dL (11.5-14.3); Mean Corpuscular Hemoglobin 30.4 pg (27-33); Mean Corpuscular Hgb Conc 34.5 g/dL (31-36); Mean Corpuscular Volume 87.9 fL (80-97); Mean Platelet Volume 7.9 fL (7.5-11.2); Platelet Count 412 10^3/uL (150-450); Red Blood Count 2.74 10^6/uL (3.63-4.92); Red Cell Distribution Width 14.1 % (12-17); White Blood Count 20.7 10^3/uL (3.8-11.8)
[2024-03-03 05:28] LABS: ABS Lymphocytes 0.9 10^3/uL (1.0-4.8); ABS Monocytes 0.8 10^3/uL (0.0-0.9); ABS Nucleated RBC 0.58 10^3/ul; Lymphocyte % 4.5 %; Nucleated Red Blood Cells % 2.8 %/100WBC (0.0-0.8)
[2024-03-03 05:29] LABS: Polychromasia 1+
[2024-03-03 05:51] LABS: Albumin 2.1 g/dL (3.2-5.2); Albumin/Globulin Ratio 1.2 (1-3); Calcium 8.1 mg/dL (8.6-10.3); Creatinine, Serum 0.56 mg/dL (0.51-0.95); Globulin 1.8 g/dL (2-4); Phosphorus 3.7 mg/dL (2.5-5.0); Potassium 4.1 mmol/L (3.5-5.0); Total Bilirubin 0.3 mg/dL (0.2-1.0); Total Protein 3.9 g/dL (6.4-8.9); eGFR CKD-EPI 87.7 (>60)
[2024-03-03] MEDS: Amiodarone 150 mg IVPREMIX 150 MG/100 ML BAG IV ONE ×2 (09:13→23:41)
[2024-03-03 12:58] LABS: Hematocrit 23.8 % (35-45); Hemoglobin 8.2 g/dL (11.5-14.3)
[2024-03-03] MEDS: TPN 24 HR with Dextrose 40% Water 625 ML, Amino Acid Infusion 10% 850 ML, Sterile Water... CENT\\PICC SCH (16:31)
[2024-03-03 23:52] LABS: Hematocrit 25.7 % (35-45); Hemoglobin 8.5 g/dL (11.5-14.3); Mean Corpuscular Hemoglobin 29.4 pg (27-33); Mean Corpuscular Hgb Conc 33.3 g/dL (31-36); Mean Corpuscular Volume 88.2 fL (80-97); Mean Platelet Volume 8.4 fL (7.5-11.2); Platelet Count 459 10^3/uL (150-450); Red Blood Count 2.91 10^6/uL (3.63-4.92); Red Cell Distribution Width 13.9 % (12-17); White Blood Count 23.9 10^3/uL (3.8-11.8)
[2024-03-03] MEDS: Furosemide 40 mg/4 ml IV VIAL IV ONE (23:55)
[2024-03-04 00:30] LABS: Calcium 8.5 mg/dL (8.6-10.3); Creatinine, Serum 0.49 mg/dL (0.51-0.95); eGFR CKD-EPI 90.6 (>60)
[2024-03-04 00:45] LABS: ABS Lymphocytes 0.8 10^3/uL (1.0-4.8); ABS Monocytes 0.6 10^3/uL (0.0-0.9); ABS Neutrophils 22.5 10^3/uL (1.5-7.6); ABS Nucleated RBC 0.66 10^3/ul; Anisocytosis 1+; Lymphocyte % 3.3 %; Nucleated Red Blood Cells % 2.7 %/100WBC (0.0-0.8); Polychromasia 1+; Toxic Granulation 2+
[2024-03-04 01:02] LABS: PCO2 Arterial 36 mmHg (35-45); PO2 Arterial 81 mmHg (80-100)
[2024-03-04] MEDS ORDERED: HYDROmorphone 0.5 MG/0.5 ML SYRINGE IV PRN (01:18)
[2024-03-04] MEDS: Enoxaparin 100 MG/ML SYR SUBCUT SCH (01:38)
[2024-03-04 06:46] LABS: Albumin 2.2 g/dL (3.2-5.2); Albumin/Globulin Ratio 1.3 (1-3); Calcium 8.3 mg/dL (8.6-10.3); Creatinine, Serum 0.49 mg/dL (0.51-0.95); Globulin 1.7 g/dL (2-4); Magnesium 1.9 mg/dL (1.9-2.7); Phosphorus 3.4 mg/dL (2.5-5.0); Potassium 3.7 mmol/L (3.5-5.0); Total Bilirubin 0.2 mg/dL (0.2-1.0); Total Protein 3.9 g/dL (6.4-8.9); eGFR CKD-EPI 90.6 (>60)
[2024-03-04] MEDS: HYDROmorphone 1 MG/1 ML SYRINGE IV SLOW PU PRN (09:11)
[2024-03-04] MEDS: Hydrocortisone INJ 100 MG/2ML 2 ML VIAL IV SCH (09:12)
[2024-03-04] MEDS: Amiodarone 150 mg IVPREMIX 150 MG/100 ML BAG IV ONE ×2 (09:17→20:48)
[2024-03-04] MEDS: Furosemide 40 mg/4 ml IV VIAL IV SLOW PU ONE (17:03)
[2024-03-04] MEDS: TPN 24 HR with Dextrose 40% Water 625 ML, Amino Acid Infusion 10% 850 ML, Sterile Water... CENT\\PICC SCH (17:45)
[2024-03-04 19:23] LABS: ABS Lymphocytes 1.2 10^3/uL (1.0-4.8); ABS Monocytes 0.8 10^3/uL (0.0-0.9); ABS Neutrophils 21.9 10^3/uL (1.5-7.6); ABS Nucleated RBC 0.55 10^3/ul; Hematocrit 24.3 % (35-45); Hemoglobin 8.2 g/dL (11.5-14.3); Lymphocyte % 4.9 %; Mean Corpuscular Hemoglobin 30.1 pg (27-33); Mean Corpuscular Hgb Conc 33.7 g/dL (31-36); Mean Corpuscular Volume 89.3 fL (80-97); Mean Platelet Volume 8.9 fL (7.5-11.2); Nucleated Red Blood Cells % 2.3 %/100WBC (0.0-0.8); Platelet Count 490 10^3/uL (150-450); Red Blood Count 2.73 10^6/uL (3.63-4.92); Red Cell Distribution Width 14.1 % (12-17); White Blood Count 23.9 10^3/uL (3.8-11.8)
[2024-03-04] MEDS ORDERED: Hydrocortisone INJ 100 MG/2ML 2 ML VIAL IV SCH (21:00)
[2024-03-05 04:39] LABS: Hematocrit 24.3 % (35-45); Mean Corpuscular Hemoglobin 29.3 pg (27-33); Mean Corpuscular Hgb Conc 32.9 g/dL (31-36); Mean Corpuscular Volume 89.1 fL (80-97); Mean Platelet Volume 8.6 fL (7.5-11.2); Platelet Count 496 10^3/uL (150-450); Red Blood Count 2.73 10^6/uL (3.63-4.92); Red Cell Distribution Width 14.8 % (12-17); White Blood Count 24.6 10^3/uL (3.8-11.8)
[2024-03-05 05:16] LABS: ABS Eosinophils 0.1 10^3/uL (0.0-0.5); ABS Lymphocytes 1.9 10^3/uL (1.0-4.8); ABS Monocytes 1.3 10^3/uL (0.0-0.9); ABS Neutrophils 21.3 10^3/uL (1.5-7.6); ABS Nucleated RBC 0.55 10^3/ul; Eosinophil % 0.2 %; Lymphocyte % 7.9 %; Nucleated Red Blood Cells % 2.3 %/100WBC (0.0-0.8)
[2024-03-05 05:17] LABS: Basophilic Stippling 1+; Polychromasia 1+; Toxic Granulation 1+
[2024-03-05 05:35] LABS: Albumin 2.1 g/dL (3.2-5.2); Albumin/Globulin Ratio 1.2 (1-3); Calcium 8.3 mg/dL (8.6-10.3); Creatinine, Serum 0.44 mg/dL (0.51-0.95); Globulin 1.8 g/dL (2-4); Magnesium 1.8 mg/dL (1.9-2.7); Phosphorus 3.4 mg/dL (2.5-5.0); Potassium 3.3 mmol/L (3.5-5.0); Total Bilirubin 0.3 mg/dL (0.2-1.0); Total Protein 3.9 g/dL (6.4-8.9)
[2024-03-05] MEDS: KCL 20 MEQ/100 ML IVPREMIX 20 MEQ/100 ML BAG IV ONE (05:55)
[2024-03-05] MEDS: Magnesium Sulfate 2 gm BAG 2 GM/50 ML BAG IVPB ONE ×2 (06:06→11:33)
[2024-03-05] MEDS: Amiodarone 150 mg IVPREMIX 150 MG/100 ML BAG IV ONE (08:19)
[2024-03-05] MEDS: KCL 20 MEQ/100 ML IVPREMIX 20 MEQ/100 ML BAG IV SCH (08:20)
[2024-03-05] MEDS: Lidocaine 2% JELLY 6 ML Topical TOPICAL ONE (11:53)
[2024-03-05 15:39] LABS: Urine Appearance No Cx Turbid (Clear); Urine Bilirubin No Culture Negative (Negative); Urine Blood No Culture Negative (Negative); Urine Color No Culture Yellow; Urine Glucose No Culture Negative (Negative); Urine Ketones No Culture Negative (Negative); Urine Leukocytes No Culture 500 (3+) Leu/uL (Negative); Urine Nitrite No Culture 2+ (Negative); Urine Protein No Culture 1+ (>=30 mg/dL) (Negative); Urine Specific Gravity No Cx 1.027 (1.002-1.030); Urine Urobilinogen No Cx Negative (Negative)
[2024-03-05 15:41] LABS: Ur Squamous Epithelial No Cx Present /HPF (Absent); Ur Transitional Epi No Culture Present /HPF (Absent); Urine Bacteria No Culture 1+ /HPF (Absent); Urine Hyaline Casts No Culture Present /HPF (Absent); Urine Red Blood Cell No Cult 3+(>10/hpf) /HPF (0-Trace); Urine White Blood Cell No Cult 3+(>20/hpf) /HPF (0-Trace)
[2024-03-05] MEDS: Vancomycin- *ENEMA* PR 500MG PR SCH (16:54)
[2024-03-05] MEDS: Enoxaparin 100 MG/ML SYR SUBCUT SCH (17:20)
[2024-03-05] MEDS: Iohexol 350 (CONTRAST) 500 ML MDV IV ONE (20:23)
[2024-03-05] MEDS: Acetaminophen IV 1 GM/100ML 1,000 MG/100 ML BAG IV PRN (22:04)
[2024-03-06] MEDS: Acetaminophen IV 1 GM/100ML 1,000 MG/100 ML BAG IV PRN ×2 (04:03→09:14)
[2024-03-06 04:54] LABS: Albumin/Globulin Ratio 1.1 (1-3); Calcium 7.9 mg/dL (8.6-10.3); Creatinine, Serum 0.42 mg/dL (0.51-0.95); Globulin 1.9 g/dL (2-4); Potassium 4.6 mmol/L (3.5-5.0); Total Bilirubin 0.3 mg/dL (0.2-1.0); Total Protein 3.9 g/dL (6.4-8.9)
[2024-03-06 05:08] LABS: ABS Eosinophils 0.1 10^3/uL (0.0-0.5); ABS Lymphocytes 1.1 10^3/uL (1.0-4.8); ABS Monocytes 0.4 10^3/uL (0.0-0.9); ABS Neutrophils 18.1 10^3/uL (1.5-7.6); ABS Nucleated RBC 0.24 10^3/ul; Eosinophil % 0.3 %; Hematocrit 24.5 % (35-45); Hemoglobin 8.2 g/dL (11.5-14.3); Lymphocyte % 5.6 %; Mean Corpuscular Hemoglobin 29.5 pg (27-33); Mean Corpuscular Hgb Conc 33.4 g/dL (31-36); Mean Corpuscular Volume 88.6 fL (80-97); Mean Platelet Volume 8.6 fL (7.5-11.2); Nucleated Red Blood Cells % 1.2 %/100WBC (0.0-0.8); Platelet Count 563 10^3/uL (150-450); Red Blood Count 2.77 10^6/uL (3.63-4.92); Red Cell Distribution Width 14.6 % (12-17); White Blood Count 19.7 10^3/uL (3.8-11.8)
[2024-03-06] MEDS: Amiodarone 400 mg TAB NG TUBE SCH (08:31)
[2024-03-06] MEDS: Vancomycin- *ENEMA* PR 500MG PR SCH (08:32)
[2024-03-06] MEDS ORDERED: Zosyn per Pharmacy NOTE FOLLOW UP SCH (10:00)
[2024-03-06] MEDS: Piperacillin/Tazobac 3.375 BAG 3.375 GM/100 ML BAG IV ONE (10:10)
[2024-03-06] MEDS: ZOSYN 3.375 GM Q8H per EXTENDED INFUSION IV SCH (14:13)
[2024-03-06] MEDS: Amiodarone 150 mg IVPREMIX 150 MG/100 ML BAG IV ONE ×2 (14:41→19:07)
[2024-03-06] MEDS: Lidocaine PATCH 5% PATCH TRANSDERM SCH (15:19)
[2024-03-07 04:08] LABS: Hematocrit 23.5 % (35-45); Hemoglobin 7.9 g/dL (11.5-14.3); Mean Corpuscular Hgb Conc 33.5 g/dL (31-36); Mean Corpuscular Volume 89.8 fL (80-97); Mean Platelet Volume 8.3 fL (7.5-11.2); Platelet Count 627 10^3/uL (150-450); Red Blood Count 2.62 10^6/uL (3.63-4.92); Red Cell Distribution Width 14.7 % (12-17); White Blood Count 34.6 10^3/uL (3.8-11.8)
[2024-03-07 04:09] LABS: ABS Eosinophils 0.1 10^3/uL (0.0-0.5); ABS Lymphocytes 1.1 10^3/uL (1.0-4.8); ABS Monocytes 0.5 10^3/uL (0.0-0.9); ABS Neutrophils 32.9 10^3/uL (1.5-7.6); ABS Nucleated RBC 0.11 10^3/ul; Eosinophil % 0.2 %; Lymphocyte % 3.2 %; Nucleated Red Blood Cells % 0.3 %/100WBC (0.0-0.8)
[2024-03-07 04:40] LABS: Albumin/Globulin Ratio 1.1 (1-3); Calcium 7.7 mg/dL (8.6-10.3); Creatinine, Serum 0.59 mg/dL (0.51-0.95); Globulin 1.9 g/dL (2-4); Potassium 4.6 mmol/L (3.5-5.0); Total Bilirubin 0.4 mg/dL (0.2-1.0); Total Protein 3.9 g/dL (6.4-8.9); eGFR CKD-EPI 86.6 (>60)
[2024-03-07] MEDS ORDERED: Dextrose 50% Syringe 50 ml 25 GM/50 ML SYRINGE IV PUSH PRN (10:12)
[2024-03-07] MEDS: Amiodarone 150 mg IVPREMIX 150 MG/100 ML BAG IV ONE ×2 (11:16→21:57)
[2024-03-08 04:45] LABS: Hemoglobin 7.4 g/dL (11.5-14.3); Mean Corpuscular Hemoglobin 28.8 pg (27-33); Mean Corpuscular Hgb Conc 32.1 g/dL (31-36); Mean Corpuscular Volume 89.7 fL (80-97); Mean Platelet Volume 8.3 fL (7.5-11.2); Platelet Count 636 10^3/uL (150-450); Red Blood Count 2.56 10^6/uL (3.63-4.92); Red Cell Distribution Width 14.8 % (12-17); White Blood Count 21.9 10^3/uL (3.8-11.8)
[2024-03-08 05:04] LABS: ABS Eosinophils 0.2 10^3/uL (0.0-0.5); ABS Lymphocytes 0.9 10^3/uL (1.0-4.8); ABS Monocytes 0.4 10^3/uL (0.0-0.9); ABS Neutrophils 20.4 10^3/uL (1.5-7.6); ABS Nucleated RBC 0.05 10^3/ul; Eosinophil % 0.8 %; Nucleated Red Blood Cells % 0.2 %/100WBC (0.0-0.8)
[2024-03-08 05:10] LABS: Calcium 7.8 mg/dL (8.6-10.3); Creatinine, Serum 0.53 mg/dL (0.51-0.95); Magnesium 2.1 mg/dL (1.9-2.7); Potassium 4.9 mmol/L (3.5-5.0); Total Bilirubin 0.3 mg/dL (0.2-1.0); eGFR CKD-EPI 88.9 (>60)
[2024-03-08] MEDS: Vancomycin- *ENEMA* PR 500MG PR SCH ×2 (11:10→18:01)
[2024-03-08] MEDS: HYDROmorphone 0.5 MG/0.5 ML SYRINGE IV SLOW PU PRN (17:20)
[2024-03-08] MEDS: PHENYLEPHRINE DRIP IVPREMIX 50 MG/250 ML BAG IV SCH (18:00)
[2024-03-08] MEDS ORDERED: Naloxone 0.4 mg VIAL 0.4 mg/ml 1 ml VIAL IV PUSH PRN (18:08)
[2024-03-08] MEDS: Amiodarone 400 mg TAB NG TUBE SCH (22:20)
[2024-03-08] MEDS: HYDROmorphone 1 MG/1 ML SYRINGE IV SLOW PU PRN (22:39)
[2024-03-09 04:05] LABS: ABS Eosinophils 0.1 10^3/uL (0.0-0.5); ABS Monocytes 0.5 10^3/uL (0.0-0.9); ABS Neutrophils 14.4 10^3/uL (1.5-7.6); ABS Nucleated RBC 0.07 10^3/ul; Eosinophil % 0.9 %; Hematocrit 21.6 % (35-45); Hemoglobin 7.1 g/dL (11.5-14.3); Lymphocyte % 6.1 %; Mean Corpuscular Hemoglobin 29.9 pg (27-33); Mean Corpuscular Hgb Conc 33.1 g/dL (31-36); Mean Corpuscular Volume 90.4 fL (80-97); Mean Platelet Volume 7.9 fL (7.5-11.2); Nucleated Red Blood Cells % 0.4 %/100WBC (0.0-0.8); Platelet Count 625 10^3/uL (150-450); Red Blood Count 2.39 10^6/uL (3.63-4.92); Red Cell Distribution Width 15.1 % (12-17)
[2024-03-09 04:53] LABS: Calcium 7.8 mg/dL (8.6-10.3); Creatinine, Serum 0.55 mg/dL (0.51-0.95); Globulin 2.1 g/dL (2-4); Magnesium 2.1 mg/dL (1.9-2.7); Total Bilirubin 0.3 mg/dL (0.2-1.0); Total Protein 4.1 g/dL (6.4-8.9); eGFR CKD-EPI 88.1 (>60)
[2024-03-09] MEDS ORDERED: NS 0.9% IVPB ONE (08:47)
[2024-03-09] MEDS ORDERED: ANIDULAFUNGIN IVPB ONE (08:47)
[2024-03-09] MEDS: oxyCODONE 5 mg/5 ml ORAL.SOLN UDC PO SCH (09:02)
[2024-03-09] MEDS: Anidulafungin 200 MG in NS 0.9% 200 ML IVPB ONE (11:15)
[2024-03-09] MEDS ORDERED: Lidocaine PATCH 5% PATCH TRANSDERM PRN (13:09)
[2024-03-09] MEDS: HYDROmorphone 1 MG/1 ML SYRINGE IV SLOW PU PRN (19:09)
[2024-03-10 04:06] LABS: ABS Basophils 0.1 10^3/uL (0.0-0.1); ABS Eosinophils 0.2 10^3/uL (0.0-0.5); ABS Lymphocytes 0.8 10^3/uL (1.0-4.8); ABS Monocytes 0.6 10^3/uL (0.0-0.9); ABS Nucleated RBC 0.04 10^3/ul; Eosinophil % 1.2 %; Hematocrit 23.1 % (35-45); Hemoglobin 7.5 g/dL (11.5-14.3); Lymphocyte % 6.3 %; Mean Corpuscular Hemoglobin 29.1 pg (27-33); Mean Corpuscular Hgb Conc 32.3 g/dL (31-36); Mean Corpuscular Volume 90.2 fL (80-97); Nucleated Red Blood Cells % 0.3 %/100WBC (0.0-0.8); Platelet Count 628 10^3/uL (150-450); Red Blood Count 2.56 10^6/uL (3.63-4.92); Red Cell Distribution Width 14.9 % (12-17); White Blood Count 12.5 10^3/uL (3.8-11.8)
[2024-03-10 04:36] LABS: Albumin 2.1 g/dL (3.2-5.2); Calcium 8.2 mg/dL (8.6-10.3); Creatinine, Serum 0.61 mg/dL (0.51-0.95); Globulin 2.2 g/dL (2-4); Potassium 5.2 mmol/L (3.5-5.0); Total Bilirubin 0.3 mg/dL (0.2-1.0); Total Protein 4.3 g/dL (6.4-8.9); eGFR CKD-EPI 85.9 (>60)
[2024-03-10] MEDS: Anidulafungin 100 MG in NS 0.9% 100 ml BAG 100 ML IVPB SCH (09:10)
[2024-03-10] MEDS: Dextran 70/Hypromellose Tears Eye Drops 15 ml BTL (for Artificials Tears) BOTH EYES PRN (17:39)
[2024-03-11 06:27] LABS: Albumin 2.1 g/dL (3.2-5.2); Albumin/Globulin Ratio 0.9 (1-3); Creatinine, Serum 0.66 mg/dL (0.51-0.95); Globulin 2.3 g/dL (2-4); Potassium 4.9 mmol/L (3.5-5.0); Total Bilirubin 0.2 mg/dL (0.2-1.0); Total Protein 4.4 g/dL (6.4-8.9); eGFR CKD-EPI 84.3 (>60)
[2024-03-11 08:21] LABS: Hematocrit 23.1 % (35-45); Hemoglobin 7.8 g/dL (11.5-14.3); Mean Corpuscular Hemoglobin 30.1 pg (27-33); Mean Corpuscular Hgb Conc 33.7 g/dL (31-36); Mean Corpuscular Volume 89.2 fL (80-97); Mean Platelet Volume 8.3 fL (7.5-11.2); Platelet Count 584 10^3/uL (150-450); Red Blood Count 2.59 10^6/uL (3.63-4.92); Red Cell Distribution Width 14.8 % (12-17); White Blood Count 10.3 10^3/uL (3.8-11.8)
[2024-03-12 06:07] LABS: ABS Basophils 0.1 10^3/uL (0.0-0.1); ABS Eosinophils 0.1 10^3/uL (0.0-0.5); ABS Lymphocytes 1.4 10^3/uL (1.0-4.8); ABS Monocytes 0.6 10^3/uL (0.0-0.9); ABS Neutrophils 7.3 10^3/uL (1.5-7.6); ABS Nucleated RBC 0.01 10^3/ul; Eosinophil % 1.1 %; Hematocrit 22.7 % (35-45); Hemoglobin 7.5 g/dL (11.5-14.3); Lymphocyte % 15.1 %; Mean Corpuscular Hemoglobin 29.4 pg (27-33); Mean Corpuscular Hgb Conc 33.1 g/dL (31-36); Mean Corpuscular Volume 88.8 fL (80-97); Mean Platelet Volume 8.6 fL (7.5-11.2); Nucleated Red Blood Cells % 0.1 %/100WBC (0.0-0.8); Platelet Count 565 10^3/uL (150-450); Red Blood Count 2.56 10^6/uL (3.63-4.92); Red Cell Distribution Width 14.9 % (12-17); White Blood Count 9.5 10^3/uL (3.8-11.8)
[2024-03-12 06:25] LABS: Calcium 7.8 mg/dL (8.6-10.3); Creatinine, Serum 0.64 mg/dL (0.51-0.95); Potassium 4.2 mmol/L (3.5-5.0); eGFR CKD-EPI 84.9 (>60)
[2024-03-13 06:15] LABS: Hematocrit 23.1 % (35-45); Hemoglobin 7.7 g/dL (11.5-14.3); Mean Corpuscular Hemoglobin 29.8 pg (27-33); Mean Corpuscular Hgb Conc 33.4 g/dL (31-36); Mean Corpuscular Volume 89.3 fL (80-97); Mean Platelet Volume 8.8 fL (7.5-11.2); Platelet Count 540 10^3/uL (150-450); Red Blood Count 2.58 10^6/uL (3.63-4.92); Red Cell Distribution Width 14.7 % (12-17); White Blood Count 9.8 10^3/uL (3.8-11.8)
[2024-03-13 06:31] LABS: Calcium 7.9 mg/dL (8.6-10.3); Creatinine, Serum 0.63 mg/dL (0.51-0.95); Potassium 4.3 mmol/L (3.5-5.0); eGFR CKD-EPI 85.3 (>60)
[2024-03-13] MEDS: Silver Nitrate/Potassium Nitr 1 PAK (1 PAK PER PATIENT) TOPICAL ONE (10:11)
[2024-03-13] MEDS: D5W 1000 ml BAG 1,000 ML IV SCH (10:33)
[2024-03-13] MEDS ORDERED: Lidocaine 1% w EPI 1:100,000 MDV 20 ML VIAL ONE (12:00)
[2024-03-13] MEDS ORDERED: Lidocaine 1% w EPI 1:100,000 MDV 50 ML VIAL ONE (12:00)
[2024-03-13] MEDS: Lidocaine 1% w EPI 1:100,000 MDV 50 ML VIAL ONE (12:06)
[2024-03-13 16:25] LABS: Calcium 8.2 mg/dL (8.6-10.3); Creatinine, Serum 0.66 mg/dL (0.51-0.95); Potassium 4.1 mmol/L (3.5-5.0); eGFR CKD-EPI 84.3 (>60)
[2024-03-13] MEDS ORDERED: Metoprolol Tartrate 5 mg VIAL 5 ml VIAL (1 mg/ml) IV PRN (17:28)
[2024-03-14] MEDS: Ondansetron 4 mg VIAL 2 MG/ML 2 ml VIAL IV ONE (04:56)
[2024-03-14 07:17] LABS: Hematocrit 22.4 % (35-45); Hemoglobin 7.5 g/dL (11.5-14.3); Mean Corpuscular Hemoglobin 29.9 pg (27-33); Mean Corpuscular Hgb Conc 33.6 g/dL (31-36); Mean Corpuscular Volume 88.9 fL (80-97); Mean Platelet Volume 9.2 fL (7.5-11.2); Platelet Count 548 10^3/uL (150-450); Red Blood Count 2.51 10^6/uL (3.63-4.92); Red Cell Distribution Width 15.2 % (12-17); White Blood Count 9.4 10^3/uL (3.8-11.8)
[2024-03-14 07:35] LABS: Calcium 7.7 mg/dL (8.6-10.3); Creatinine, Serum 0.6 mg/dL (0.51-0.95); Magnesium 1.9 mg/dL (1.9-2.7); Potassium 4.2 mmol/L (3.5-5.0); eGFR CKD-EPI 86.3 (>60)
[2024-03-14] MEDS: D5W 1000 ml BAG 1,000 ML IV SCH (12:35)
[2024-03-14] MEDS: Ondansetron 4 mg VIAL 2 MG/ML 2 ml VIAL IV PRN (13:18)
[2024-03-14 16:55] LABS: Calcium 8.2 mg/dL (8.6-10.3); Creatinine, Serum 0.69 mg/dL (0.51-0.95); Potassium 4.4 mmol/L (3.5-5.0); eGFR CKD-EPI 83.4 (>60)
[2024-03-15 07:04] LABS: ABS Eosinophils 0.4 10^3/uL (0.0-0.5); ABS Lymphocytes 1.8 10^3/uL (1.0-4.8); ABS Monocytes 0.3 10^3/uL (0.0-0.9); ABS Neutrophils 6.2 10^3/uL (1.5-7.6); ABS Nucleated RBC 0.08 10^3/ul; Hematocrit 22.2 % (35-45); Hemoglobin 7.4 g/dL (11.5-14.3); Lymphocyte % 20.8 %; Mean Corpuscular Hemoglobin 29.8 pg (27-33); Mean Corpuscular Hgb Conc 33.1 g/dL (31-36); Mean Platelet Volume 9.3 fL (7.5-11.2); Nucleated Red Blood Cells % 0.9 %/100WBC (0.0-0.8); Platelet Count 546 10^3/uL (150-450); Red Blood Count 2.47 10^6/uL (3.63-4.92); Red Cell Distribution Width 15.3 % (12-17); White Blood Count 8.7 10^3/uL (3.8-11.8)
[2024-03-15 07:26] LABS: Calcium 7.9 mg/dL (8.6-10.3); Creatinine, Serum 0.67 mg/dL (0.51-0.95); Magnesium 1.8 mg/dL (1.9-2.7); Potassium 4.9 mmol/L (3.5-5.0)
[2024-03-15] MEDS: Pantoprazole VIAL 40 MG VIAL IV SCH (08:36)
[2024-03-15] MEDS: Magnesium Sulfate 2 gm BAG 2 GM/50 ML BAG IVPB ONE (09:56)
[2024-03-15 12:40] LABS: Phosphorus 3.9 mg/dL (2.5-5.0)
[2024-03-15 13:50] LABS: Ferritin 226.9 ng/mL (11-307)
[2024-03-15] MEDS: Lidocaine 4% GEL 10 GM TUBE TOPICAL ONE (15:17)
[2024-03-15] MEDS: Furosemide 20 mg/2 ml IV VIAL IV SLOW PU ONE (15:29)
[2024-03-16 08:10] LABS: Hematocrit 24.4 % (35-45); Hemoglobin 8.1 g/dL (11.5-14.3); Mean Corpuscular Hemoglobin 29.8 pg (27-33); Mean Corpuscular Hgb Conc 33.3 g/dL (31-36); Mean Corpuscular Volume 89.5 fL (80-97); Mean Platelet Volume 9.6 fL (7.5-11.2); Platelet Count 644 10^3/uL (150-450); Red Blood Count 2.72 10^6/uL (3.63-4.92); White Blood Count 10.3 10^3/uL (3.8-11.8)
[2024-03-16] MEDS: Furosemide 20 mg/2 ml IV VIAL IV ONE ×2 (08:16→10:22)
[2024-03-16 08:34] LABS: Calcium 8.2 mg/dL (8.6-10.3); Creatinine, Serum 0.69 mg/dL (0.51-0.95); Potassium 5.6 mmol/L (3.5-5.0); eGFR CKD-EPI 83.4 (>60)
[2024-03-16] MEDS ORDERED: Zosyn per Pharmacy NOTE FOLLOW UP SCH (09:00)
[2024-03-16 09:43] LABS: PCO2 Arterial 55 mmHg (35-45); PO2 Arterial 76 mmHg (80-100)
[2024-03-16 09:44] VITALS: BP 128/46
[2024-03-16] MEDS: Piperacillin/Tazobac 3.375 BAG 3.375 GM/100 ML BAG IV ONE (09:58)
[2024-03-16] MEDS ORDERED: Polyethylene Glycol 3350 17 GM PACKET PO PRN (11:54)
[2024-03-16] MEDS: Morphine 2 MG/ML SYRINGE IV PRN (12:02)
[2024-03-16] MEDS ORDERED: Lorazepam PYXIS KEY PRN (13:59)
[2024-03-16] MEDS: LORazepam 2 mg VIAL 1 ml IV PUSH PRN (15:10)
[2024-03-16] MEDS: Atropine 1% (ORAL/SL) 15 ML BTL SL PRN (15:12)
[2024-03-16] MEDS ORDERED: ZOSYN 3.375 GM Q8H per EXTENDED INFUSION IV SCH (18:00)
== END 2024-03-17 04:20 | disposition expired | DRG 853 ==
LOC: ED 21:32 → EDHOLD 02-25 00:43 → SUATTDRO 02-25 00:43 → ICU 02-25 01:06 → SSU 03-03 16:30 → ICU 03-03 23:13 → SSU 03-10 14:37 → MEDTELE 03-13 19:54
PROVIDERS: ADMIT Internal Medicine; ATTEND Internal Medicine